=== PATIENT | male | born 1970 | race Caucasian/White ===

== ENCOUNTER 2022-02-10 20:29 | Emergency (ER) | payer OTHER ==
[~2022-02-10] VITALS: Ht 185.4 cm; Wt 79.4 kg
[2022-02-10] MEDS ORDERED: ACETAMINOPHEN 325 MG TAB PO ONE (20:45)
[2022-02-10] MEDS ORDERED: ACETAMINOPHEN 325 MG TAB ONE (21:04)
== END 2022-02-11 00:01 | disposition home or self-care (01) ==
LOC: ER 20:35
DX: S43.102A Unspecified dislocation of left acromioclavicular joint, initial encounter (principal); S09.90XA Unspecified injury of head, initial encounter; M25.552 Pain in left hip; M79.662 Pain in left lower leg; M54.2 Cervicalgia; I10 Essential (primary) hypertension; E11.9 Type 2 diabetes mellitus without complications; I25.2 Old myocardial infarction; W01.0XXA Fall on same level from slipping, tripping and stumbling without subsequent striking against object, initial encounter; Y92.89 Other specified places as the place of occurrence of the external cause; Y99.0 Civilian activity done for income or pay; Z91.041 Radiographic dye allergy status; Z95.810 Presence of automatic (implantable) cardiac defibrillator; Z87.891 Personal history of nicotine dependence
CPT/HCPCS: 70450; 72125; 99283

== ENCOUNTER 2024-07-03 13:57 | Emergency (ER) | payer OTHER ==
[~2024-07-03] VITALS: Ht 185.4 cm; Wt 75.7 kg
[~2024-07-03 13:57] MED LIST: ATORVASTATIN CA10 MG PO; BACLOFEN10 MG PO; CLOPIDOGREL75 MG PO; COLACE PO; FEOSOL325 MG PO; GLIPIZIDE5 MG PO; HYDROCODON-ACE1 EA12 PO; LISINOPRIL2.5 MG PO; METFORMIN HCL500 MG PO; METOPROLOL SUCC25 MG PO; NEURONTIN100 MG PO; PANTOPRAZOLE SO40 MG PO; PEPCID20 MG PO; PERCOCET 10-321 EACH PO; SERTRALINE HCL100 MG PO
[2024-07-03 14:13] VITALS: TEMP 98.2
[2024-07-03 14:41] LABS: BASOPHILS % 0.5 % (0.0-1.0); EOSINOPHILS % 0.7 % (0.0-6.0); HEMATOCRIT 39.9 % (38.2-49.6); HEMOGLOBIN 13.1 g/dL (14.0-18.0); LYMPHOCYTES % 16.7 % (18.0-39.1); MEAN CORPUSCULAR HEMOGLOBIN 30.7 pg (28-32); MEAN CORPUSCULAR HGB CONC 32.8 g/dL (31-35); MEAN CORPUSCULAR VOLUME 93.4 fL (81-99); MONOCYTES # (AUTO) 0.6 (0.2-0.8); MONOCYTES % 9.4 % (4.4-11.3); NEUTROPHILS # (AUTO) 4.3 (2.1-6.9); NEUTROPHILS % 72.5 % (38.7-80.0); PLATELET COUNT 293 x10e3/uL (140-360); RED BLOOD COUNT 4.27 x10e6/uL (4.3-5.7); RED CELL DISTRIBUTION WIDTH 13.3 % (11.7-14.4); WHITE BLOOD COUNT 5.88 x10e3/uL (4.8-10.8)
[2024-07-03 14:42] LABS: CLARITY,URINE SL CLOUDY (CLEAR); COLOR,URINE YELLOW (YELLOW); GLUCOSE, URINE NEGATIVE (NEGATIVE); LEUKOCYTE ESTERASE ,URINE NEGATIVE (NEGATIVE); PH,URINE 5.5 (5 - 7); PROTEIN,URINE DIPSTICK NEGATIVE (NEGATIVE)
[2024-07-03 14:43] LABS: BILIRUBIN,URINE NEGATIVE (NEGATIVE); KETONES,URINE TRACE (NEGATIVE); URINE UROBILINOGEN 0.2 mg/dL (0.2 - 1)
[2024-07-03 14:59] LABS: ALBUMIN 4.4 g/dL (3.5-5.0); ALBUMIN/GLOBULIN RATIO 1.2 (0.8-2.0); ANION GAP 16.5 mmol/L (8-16); BACTERIA,URINE FEW /HPF; BILIRUBIN,TOTAL 0.5 mg/dL (0.2-1.2); CALCIUM 10.6 mg/dL (8.4-10.2); CREATININE, SERUM 1.03 mg/dL (0.72-1.25); MUCUS,URINE FEW (RARE); NITRITE,URINE NEGATIVE (NEGATIVE); POTASSIUM 4.5 mmol/L (3.5-5.1); TOTAL PROTEIN 8.1 g/dL (6.5-8.1)
[2024-07-03] MEDS: SODIUM CHLORIDE 0.9% 1000ML 1,000 ML IV ONE (15:45)
[2024-07-03 16:35] VITALS: PULSE 91; RESP 16; O2SAT 98
== END 2024-07-03 17:28 | disposition home or self-care (01) ==
LOC: ER 14:19
DX: R10.30 Lower abdominal pain, unspecified (principal); R19.5 Other fecal abnormalities; I10 Essential (primary) hypertension; E11.9 Type 2 diabetes mellitus without complications; E78.5 Hyperlipidemia, unspecified; I25.10 Atherosclerotic heart disease of native coronary artery without angina pectoris; I25.2 Old myocardial infarction; Z95.5 Presence of coronary angioplasty implant and graft; Z95.810 Presence of automatic (implantable) cardiac defibrillator
CPT/HCPCS: 36415; 74176; 80053; 81001; 83690; 85025; 99284; J2470; J7030

== ENCOUNTER → 2024-09-28 | Day surgery (SDC) | payer OTHER ==
[2024-09-22 09:48] LABS: BASOPHILS % 0.4 % (0.0-1.0); EOSINOPHILS # (AUTO) 0.3 (0.0-0.4); EOSINOPHILS % 4.1 % (0.0-6.0); HEMOGLOBIN 12.8 g/dL (14.0-18.0); LYMPHOCYTES # (AUTO) 1.1 (1.0-3.2); LYMPHOCYTES % 16.4 % (18.0-39.1); MEAN CORPUSCULAR HEMOGLOBIN 31.5 pg (28-32); MEAN CORPUSCULAR VOLUME 98.5 fL (81-99); MONOCYTES # (AUTO) 0.6 (0.2-0.8); NEUTROPHILS # (AUTO) 4.8 (2.1-6.9); NEUTROPHILS % 70.8 % (38.7-80.0); PLATELET COUNT 217 x10e3/uL (140-360); RED BLOOD COUNT 4.06 x10e6/uL (4.3-5.7); WHITE BLOOD COUNT 6.84 x10e3/uL (4.8-10.8)
[~2024-09-28] MED LIST changes: +COLESTIPOL HCL1 GM PO; +FENTANYL CITRATE/PF 100MCG/2 ML INJ ONE; +LIDOCAINE HCL 2% LOCAL INJ 5 ML SDV VIAL INJ ONE; +PROPOFOL IV EMULSION 10 MG/ML 20 ML VIAL ONE
[2024-09-28] MEDS: LACTATED RINGER'S 1,000 ML ONE (12:09)
[2024-09-28 13:28] VITALS: TEMP 97
[2024-09-28 13:50] VITALS: BP 120/79; PULSE 73; RESP 18; O2SAT 100
== END | disposition home or self-care (01) ==
LOC: OR 11:28
PROVIDERS: ATTEND Internal Medicine Gastroenterology
DX: K29.70 Gastritis, unspecified, without bleeding (principal); K31.1 Adult hypertrophic pyloric stenosis; K22.2 Esophageal obstruction; K20.90 Esophagitis, unspecified without bleeding; K21.9 Gastro-esophageal reflux disease without esophagitis; K31.89 Other diseases of stomach and duodenum; K44.9 Diaphragmatic hernia without obstruction or gangrene; Z71.3 Dietary counseling and surveillance; E11.9 Type 2 diabetes mellitus without complications; I25.10 Atherosclerotic heart disease of native coronary artery without angina pectoris; I10 Essential (primary) hypertension; Z71.89 Other specified counseling; E78.5 Hyperlipidemia, unspecified; I25.2 Old myocardial infarction; Z91.041 Radiographic dye allergy status; Z01.810 Encounter for preprocedural cardiovascular examination; Z01.812 Encounter for preprocedural laboratory examination; Z79.02 Long term (current) use of antithrombotics/antiplatelets; Z79.84 Long term (current) use of oral hypoglycemic drugs; Z79.899 Other long term (current) drug therapy; Z95.0 Presence of cardiac pacemaker; Z95.5 Presence of coronary angioplasty implant and graft
CPT/HCPCS: 36415; 43239; 43245; 43450; 85025; 93005; C1726; J2003; J2470; J2704; J7121

== ENCOUNTER 2024-11-20 00:40 | Emergency (ER) | payer OTHER ==
[~2024-11-20] VITALS: Ht 185.4 cm; Wt 75.3 kg
[~2024-11-20 00:40] MED LIST changes: -FENTANYL CITRATE/PF 100MCG/2 ML INJ ONE; -LIDOCAINE HCL 2% LOCAL INJ 5 ML SDV VIAL INJ ONE; -PROPOFOL IV EMULSION 10 MG/ML 20 ML VIAL ONE
[2024-11-20] MEDS ORDERED: ONDANSETRON HCL 4 MG ORAL DISINTEGRATING TAB PO ONE (01:15)
[2024-11-20 01:22] LABS: BASOPHILS % 0.3 % (0.0-1.0); EOSINOPHILS # (AUTO) 0.1 (0.0-0.4); EOSINOPHILS % 1.8 % (0.0-6.0); HEMATOCRIT 36.3 % (38.2-49.6); HEMOGLOBIN 12.4 g/dL (14.0-18.0); LYMPHOCYTES # (AUTO) 1.7 (1.0-3.2); LYMPHOCYTES % 23.2 % (18.0-39.1); MEAN CORPUSCULAR HEMOGLOBIN 31.8 pg (28-32); MEAN CORPUSCULAR HGB CONC 34.2 g/dL (31-35); MEAN CORPUSCULAR VOLUME 93.1 fL (81-99); MONOCYTES # (AUTO) 0.6 (0.2-0.8); NEUTROPHILS # (AUTO) 4.6 (2.1-6.9); NEUTROPHILS % 65.4 % (38.7-80.0); PLATELET COUNT 286 x10e3/uL (140-360); RED CELL DISTRIBUTION WIDTH 13.1 % (11.7-14.4)
[2024-11-20] MEDS: ONDANSETRON HCL INJ 2MG/ML 2ML 2 MG/ML VIAL IV STA (01:28)
[2024-11-20 01:37] LABS: ALBUMIN 4.1 g/dL (3.5-5.0); ALBUMIN/GLOBULIN RATIO 1.2 (0.8-2.0); ANION GAP 15.4 mmol/L (8-16); BILIRUBIN,TOTAL 0.4 mg/dL (0.2-1.2); CREATININE, SERUM 1.25 mg/dL (0.72-1.25); POTASSIUM 4.4 mmol/L (3.5-5.1); TOTAL PROTEIN 7.4 g/dL (6.5-8.1)
[2024-11-20] MEDS: SODIUM CHLORIDE 0.9% 1000ML 1,000 ML IV ONE (02:43)
[2024-11-20 02:50] LABS: BILIRUBIN,URINE NEGATIVE (NEGATIVE); CLARITY,URINE CLEAR (CLEAR); COLOR,URINE YELLOW (YELLOW); GLUCOSE, URINE 500 (NEGATIVE); KETONES,URINE TRACE (NEGATIVE); LEUKOCYTE ESTERASE ,URINE NEGATIVE (NEGATIVE); NITRITE,URINE NEGATIVE (NEGATIVE); PH,URINE 5.5 (5 - 7); PROTEIN,URINE DIPSTICK NEGATIVE (NEGATIVE); URINE UROBILINOGEN 0.2 mg/dL (0.2 - 1)
[2024-11-20 02:52] LABS: BACTERIA,URINE MODERATE /HPF; EPITHELIAL CELLS,URINE FEW /LPF; RBC,URINE 0-5 /HPF (0-5); WBC,URINE (MAN) 0-5 /HPF (0-5)
[2024-11-20] MEDS ORDERED: ONDANSETRON ODT4 MG SL (03:56)
[2024-11-20] MEDS ORDERED: PANTOPRAZOLE SO40 MG PO (03:56)
[2024-11-20 03:58] VITALS: PULSE 73; RESP 16; TEMP 97.6; O2SAT 99
== END 2024-11-20 04:01 | disposition home or self-care (01) ==
LOC: ER 00:50
DX: R10.33 Periumbilical pain (principal); R74.8 Abnormal levels of other serum enzymes; R19.7 Diarrhea, unspecified; R11.0 Nausea
CPT/HCPCS: 36415; 74176; 80053; 81001; 83690; 85025; 99284; J2405; J2470; J7030

== ENCOUNTER → 2024-12-17 | Day surgery (SDC) | payer OTHER ==
[2024-12-16 11:33] LABS: BASOPHILS % 0.4 % (0.0-1.0); EOSINOPHILS # (AUTO) 0.1 (0.0-0.4); EOSINOPHILS % 2.2 % (0.0-6.0); HEMATOCRIT 36.3 % (38.2-49.6); HEMOGLOBIN 12.3 g/dL (14.0-18.0); LYMPHOCYTES # (AUTO) 1.1 (1.0-3.2); LYMPHOCYTES % 22.6 % (18.0-39.1); MEAN CORPUSCULAR HEMOGLOBIN 31.4 pg (28-32); MEAN CORPUSCULAR HGB CONC 33.9 g/dL (31-35); MEAN CORPUSCULAR VOLUME 92.6 fL (81-99); MONOCYTES # (AUTO) 0.4 (0.2-0.8); MONOCYTES % 8.2 % (4.4-11.3); NEUTROPHILS # (AUTO) 3.3 (2.1-6.9); NEUTROPHILS % 66.6 % (38.7-80.0); PLATELET COUNT 259 x10e3/uL (140-360); RED BLOOD COUNT 3.92 x10e6/uL (4.3-5.7); RED CELL DISTRIBUTION WIDTH 12.7 % (11.7-14.4); WHITE BLOOD COUNT 4.99 x10e3/uL (4.8-10.8)
[~2024-12-17] MED LIST changes: +FENTANYL CITRATE/PF 100MCG/2 ML INJ ONE; +HYDRALAZINE HCL 20 MG/ML VIAL ONE; +ISOSORBIDE MONO30 MG PO; +KAPSPARGO SPRIN50 MG PO; +LIDOCAINE HCL 2% LOCAL INJ 5 ML SDV VIAL INJ ONE; +METOCLOPRAMIDE HCL 10 MG/2ML VIAL ONE; +ONDANSETRON ODT4 MG SL; +PHENYLEPHRINE HCL 1% 10 MG/ML VIAL ONE; +PROPOFOL IV EMULSION 10 MG/ML 20 ML VIAL ONE; +SODIUM CHLORIDE 0.9% 100 ML ONE
[2024-12-17] MEDS: LACTATED RINGER'S 1,000 ML ONE (05:59)
[2024-12-17 08:25] VITALS: BP 105/68; PULSE 76; RESP 16; TEMP 97.2; O2SAT 99
== END | disposition home or self-care (01) ==
LOC: OR 05:25
PROVIDERS: ATTEND Internal Medicine Gastroenterology
DX: K29.70 Gastritis, unspecified, without bleeding (principal); K31.7 Polyp of stomach and duodenum; K31.1 Adult hypertrophic pyloric stenosis; K20.90 Esophagitis, unspecified without bleeding; K31.89 Other diseases of stomach and duodenum; K44.9 Diaphragmatic hernia without obstruction or gangrene; K21.9 Gastro-esophageal reflux disease without esophagitis; R19.5 Other fecal abnormalities; Z98.890 Other specified postprocedural states; G47.33 Obstructive sleep apnea (adult) (pediatric); R63.4 Abnormal weight loss; I25.2 Old myocardial infarction; E78.5 Hyperlipidemia, unspecified; E11.9 Type 2 diabetes mellitus without complications; F32.A Depression, unspecified; Z91.041 Radiographic dye allergy status; Z01.812 Encounter for preprocedural laboratory examination; Z79.02 Long term (current) use of antithrombotics/antiplatelets; Z79.84 Long term (current) use of oral hypoglycemic drugs; Z79.899 Other long term (current) drug therapy; Z95.5 Presence of coronary angioplasty implant and graft
CPT/HCPCS: 36415 ×2; 43245; 43251; 82948; 85025; C1726; J0360; J2003; J2371; J2470; J2704; J2765; J3010; J7050; J7121; 43239; 43450

== ENCOUNTER 2025-01-29 07:42 | Emergency (ER) | payer OTHER ==
[~2025-01-29] VITALS: Ht 185.4 cm; Wt 69.9 kg
[~2025-01-29 07:42] MED LIST changes: -FENTANYL CITRATE/PF 100MCG/2 ML INJ ONE; -HYDRALAZINE HCL 20 MG/ML VIAL ONE; -LIDOCAINE HCL 2% LOCAL INJ 5 ML SDV VIAL INJ ONE; -METOCLOPRAMIDE HCL 10 MG/2ML VIAL ONE; -PHENYLEPHRINE HCL 1% 10 MG/ML VIAL ONE; -PROPOFOL IV EMULSION 10 MG/ML 20 ML VIAL ONE; -SODIUM CHLORIDE 0.9% 100 ML ONE
[2025-01-29 08:11] LABS: BASOPHILS % 0.7 % (0.0-1.0); EOSINOPHILS # (AUTO) 0.2 (0.0-0.4); EOSINOPHILS % 3.6 % (0.0-6.0); HEMATOCRIT 35.8 % (38.2-49.6); HEMOGLOBIN 12.4 g/dL (14.0-18.0); LYMPHOCYTES # (AUTO) 1.3 (1.0-3.2); MEAN CORPUSCULAR HEMOGLOBIN 31.7 pg (28-32); MEAN CORPUSCULAR HGB CONC 34.6 g/dL (31-35); MEAN CORPUSCULAR VOLUME 91.6 fL (81-99); MONOCYTES # (AUTO) 0.6 (0.2-0.8); MONOCYTES % 14.8 % (4.4-11.3); NEUTROPHILS # (AUTO) 2.1 (2.1-6.9); NEUTROPHILS % 49.9 % (38.7-80.0); PLATELET COUNT 255 x10e3/uL (140-360); RED BLOOD COUNT 3.91 x10e6/uL (4.3-5.7); RED CELL DISTRIBUTION WIDTH 12.6 % (11.7-14.4)
[2025-01-29 08:16] VITALS: TEMP 97.7
[2025-01-29] MEDS: DICYCLOMINE HCL 20 MG/2 ML VIAL IM ONE (08:32)
[2025-01-29] MEDS: SODIUM CHLORIDE 0.9% 1000ML 1,000 ML IV ONE (08:32)
[2025-01-29] MEDS: FAMOTIDINE 20 MG/2 ML VIAL IV STA (08:32)
[2025-01-29] MEDS: ONDANSETRON HCL INJ 2MG/ML 2ML 2 MG/ML VIAL IV STA (08:32)
[2025-01-29 08:41] LABS: ALBUMIN 3.8 g/dL (3.5-5.0); ALBUMIN/GLOBULIN RATIO 1.2 (0.8-2.0); BILIRUBIN,TOTAL 0.5 mg/dL (0.2-1.2); CALCIUM 8.6 mg/dL (8.4-10.2); CREATININE, SERUM 1.04 mg/dL (0.72-1.25); TOTAL PROTEIN 7.1 g/dL (6.5-8.1)
[2025-01-29] MEDS: METOCLOPRAMIDE HCL 10 MG/2ML VIAL IV ONE (10:31)
[2025-01-29 11:36] VITALS: PULSE 86; RESP 16; O2SAT 99
[2025-01-29] MEDS ORDERED: REGLAN10 MG PO (11:36)
== END 2025-01-29 12:17 | disposition home or self-care (01) ==
LOC: ER 07:48
DX: R11.2 Nausea with vomiting, unspecified (principal); R10.84 Generalized abdominal pain; I10 Essential (primary) hypertension; E11.65 Type 2 diabetes mellitus with hyperglycemia; E78.5 Hyperlipidemia, unspecified; I25.10 Atherosclerotic heart disease of native coronary artery without angina pectoris; R94.31 Abnormal electrocardiogram [ECG] [EKG]; I25.2 Old myocardial infarction; Z95.5 Presence of coronary angioplasty implant and graft; Z95.810 Presence of automatic (implantable) cardiac defibrillator; Z98.84 Bariatric surgery status
CPT/HCPCS: 36415; 74176; 80053; 83690; 84484; 85025; 93005; 99284; J0500; J1308; J2405; J2765; J7030

== ENCOUNTER → 2025-03-10 | Outpatient (REF) | payer OTHER ==
[~2025-03-10] MED LIST changes: +REGLAN10 MG PO
== END ==
LOC: US 08:53
PROVIDERS: ATTEND Nurse Practitioner
DX: R10.84 Generalized abdominal pain (principal); R16.0 Hepatomegaly, not elsewhere classified; K76.0 Fatty (change of) liver, not elsewhere classified
CPT/HCPCS: 74230; 76700

== ENCOUNTER 2025-05-28 12:30 | Emergency (ER) | payer OTHER ==
[~2025-05-28] VITALS: Ht 185.4 cm; Wt 63.5 kg
[~2025-05-28 12:30] MED LIST changes: +ONDANSETRON ODT4 MG PO; +PROTONIX40 MG PO
[2025-05-28 12:55] VITALS: PULSE 98; RESP 20; TEMP 98
[2025-05-28 14:20] LABS: BASOPHILS % 0.3 % (0.0-1.0); EOSINOPHILS % 0.3 % (0.0-6.0); LYMPHOCYTES % 15.7 % (18.0-39.1); MONOCYTES % 7.4 % (4.4-11.3); NEUTROPHILS % 76.0 % (38.7-80.0); RED CELL DISTRIBUTION WIDTH 12.1 % (11.7-14.4)
[2025-05-28] MEDS: SODIUM CHLORIDE 0.9% 1000ML 1,000 ML IV STA ×2 (14:21)
[2025-05-28] MEDS: ONDANSETRON HCL INJ 2MG/ML 2ML 2 MG/ML VIAL IV STA (14:21)
[2025-05-28 14:40] LABS: INR 0.87
[2025-05-28 14:41] LABS: AMPHETAMINES SCREEN,URINE NEGATIVE (NEGATIVE); CANNABINOIDS SCREEN,URINE NEGATIVE (NEGATIVE); COCAINE SCREEN,URINE NEGATIVE (NEGATIVE); LEUKOCYTE ESTERASE ,URINE NEGATIVE (NEGATIVE); METHADONE SCREEN, URINE NEGATIVE (NEGATIVE); OPIATES SCREEN,URINE NEGATIVE (NEGATIVE); PROTEIN,URINE DIPSTICK NEGATIVE (NEGATIVE); URINE UROBILINOGEN 0.2 mg/dL (0.2 - 1)
[2025-05-28 14:47] LABS: EST GLOMERULAR FILTRATION RATE 64 ML/MIN (>=60)
[2025-05-28 15:14] LABS: EPITHELIAL CELLS,URINE FEW /LPF; WBC,URINE (MAN) 0-5 /HPF (0-5)
[2025-05-28] MEDS ORDERED: ONDANSETRON ODT4 MG PO (15:48)
[2025-05-28] MEDS ORDERED: DICYCLOMINE HCL20 MG PO (15:48)
[2025-05-28 17:12] VITALS: BP 102/78; PULSE 83; RESP 18; TEMP 98.6; O2SAT 98
[2025-06-02] MEDS ORDERED: SPIRONOLACTONE25 MG PO (08:59)
[2025-06-02] MEDS ORDERED: ABILIFY5 MG PO (08:59)
[2025-06-02] MEDS ORDERED: PROMETHAZINE HC25 M1 PO (08:59)
[2025-06-02] MEDS ORDERED: NABUMETONE500 MG PO (08:59)
[2025-06-02] MEDS ORDERED: SUCRALFATE1 GM PO (08:59)
[2025-06-02] MEDS ORDERED: FARXIGA10 MG PO (08:59)
[2025-06-02] MEDS ORDERED: VITAMIN D31250 MCG PO (08:59)
[2025-06-02] MEDS ORDERED: METOCLOPRAMIDE10 MG PO (08:59)
[2025-06-02] MEDS ORDERED: MIDODRINE HCL5 MG PO (08:59)
[2025-06-02] MEDS ORDERED: CYCLOBENZAPRINE10 MG PO (08:59)
[2025-06-02] MEDS ORDERED: HYDROXYZINE HCL10 MG PO (08:59)
[2025-06-02] MEDS ORDERED: BUDESONIDE0.5 MG/2 M NEB (08:59)
== END 2025-05-28 17:16 | disposition home or self-care (01) ==
LOC: ER 13:13
DX: R11.2 Nausea with vomiting, unspecified (principal); K52.9 Noninfective gastroenteritis and colitis, unspecified; I10 Essential (primary) hypertension; E11.65 Type 2 diabetes mellitus with hyperglycemia; E78.5 Hyperlipidemia, unspecified; M54.9 Dorsalgia, unspecified; G89.29 Other chronic pain; F41.9 Anxiety disorder, unspecified; F32.A Depression, unspecified; R94.31 Abnormal electrocardiogram [ECG] [EKG]; I25.2 Old myocardial infarction; Z95.810 Presence of automatic (implantable) cardiac defibrillator; Z95.5 Presence of coronary angioplasty implant and graft
CPT/HCPCS: 36415; 71045; 74176; 80053; 80307; 81001; 82550; 83690; 83735; 84484; 85025; 85610; 85730; 93005; 96374; 96375; 99283; J2405; J2470; J7030

== ENCOUNTER → 2025-06-10 | Day surgery (SDC) | payer BC, OTHER ==
[2025-06-02 09:48] LABS: BASOPHILS % 0.6 % (0.0-1.0); EOSINOPHILS % 2.8 % (0.0-6.0); LYMPHOCYTES % 20.9 % (18.0-39.1); MONOCYTES % 8.5 % (4.4-11.3); NEUTROPHILS % 67.0 % (38.7-80.0); RED CELL DISTRIBUTION WIDTH 12.1 % (11.7-14.4)
[~2025-06-10] MED LIST changes: +ABILIFY5 MG PO; +BUDESONIDE0.5 MG/2 M NEB; +CYCLOBENZAPRINE10 MG PO; +DICYCLOMINE HCL20 MG PO; +FARXIGA10 MG PO; +FENTANYL CITRATE/PF 100MCG/2 ML INJ ONE; +HYDROXYZINE HCL10 MG PO; +HYOSCYAMINE SULFATE 0.5 MG/ML INJ ONE; +LIDOCAINE HCL 2% LOCAL INJ 5 ML SDV VIAL INJ ONE; +METOCLOPRAMIDE HCL 10 MG/2ML VIAL ONE; +METOCLOPRAMIDE10 MG PO; +MIDODRINE HCL5 MG PO; +NABUMETONE500 MG PO; +PROMETHAZINE HC25 M1 PO; +PROPOFOL IV EMULSION 10 MG/ML 20 ML VIAL ONE; +SPIRONOLACTONE25 MG PO; +SUCRALFATE1 GM PO; +VITAMIN D31250 MCG PO
[2025-06-10] MEDS: LACTATED RINGER'S 1,000 ML ONE (12:28)
[2025-06-10 13:52] VITALS: TEMP 97.8
[2025-06-10 14:20] VITALS: BP 113/77; PULSE 81; RESP 16; O2SAT 99
== END | disposition home or self-care (01) ==
LOC: OR 11:27
PROVIDERS: ATTEND Internal Medicine Gastroenterology
DX: K20.90 Esophagitis, unspecified without bleeding (principal); K44.9 Diaphragmatic hernia without obstruction or gangrene; K31.7 Polyp of stomach and duodenum; K29.70 Gastritis, unspecified, without bleeding; I10 Essential (primary) hypertension; I25.10 Atherosclerotic heart disease of native coronary artery without angina pectoris; I25.2 Old myocardial infarction; I73.9 Peripheral vascular disease, unspecified; G47.30 Sleep apnea, unspecified; J45.909 Unspecified asthma, uncomplicated; Z99.81 Dependence on supplemental oxygen; E11.9 Type 2 diabetes mellitus without complications; Z79.84 Long term (current) use of oral hypoglycemic drugs; Z01.810 Encounter for preprocedural cardiovascular examination; Z01.812 Encounter for preprocedural laboratory examination
CPT/HCPCS: 36415 ×2; 43245; 43251; 82948; 85025; 93005; J2003; J2470; J2704; J2765; J3010; J7121; 43239; 43450; J1980